=== PATIENT | female | born 1965 | race Caucasian/White ===

== ENCOUNTER → 2017-09-23 | Outpatient (CLI) | payer OTHER ==
[~2017-09-23] MED LIST: PERFLUTREN PROTEIN-A MICROSPHR 0.22 MG/ML 3 ML VIAL. IV
== END | disposition home or self-care (01) ==
LOC: PCVCIMAG 15:15
DX: I10 Essential (primary) hypertension (principal); I49.3 Ventricular premature depolarization; R94.31 Abnormal electrocardiogram [ECG] [EKG]; Z79.82 Long term (current) use of aspirin; Z79.899 Other long term (current) drug therapy
CPT/HCPCS: 93005; 93308; C8924; G0463; Q9956